=== PATIENT | female | born 1990 | race Caucasian/White ===

== ENCOUNTER → 2017-10-03 | Outpatient (CLI) | payer OTHER | END | disposition home or self-care (01) | LOC: US 16:14 | DX: Z34.92 Encounter for supervision of normal pregnancy, unspecified, second trimester (principal); Z3A.18 18 weeks gestation of pregnancy ==

== ENCOUNTER → 2017-11-02 | Outpatient (CLI) | payer OTHER | END | disposition home or self-care (01) | LOC: US 14:47 | DX: Z34.82 Encounter for supervision of other normal pregnancy, second trimester (principal); Z3A.21 21 weeks gestation of pregnancy ==

== ENCOUNTER → 2018-02-08 | Outpatient (CLI) | payer OTHER | END | disposition home or self-care (01) | LOC: US 16:40 | DX: O32.1XX0 Maternal care for breech presentation, not applicable or unspecified (principal); Z3A.35 35 weeks gestation of pregnancy ==

== ENCOUNTER → 2018-02-27 | Outpatient (CLI) | payer OTHER | END | disposition home or self-care (01) | LOC: US 10:59 | DX: Z34.93 Encounter for supervision of normal pregnancy, unspecified, third trimester (principal); Z3A.38 38 weeks gestation of pregnancy ==

== ENCOUNTER → 2020-07-27 | Outpatient (CLI) | payer OTHER | END | disposition home or self-care (01) | LOC: US 14:28 | PROVIDERS: ATTEND Nurse Practitioner Family | DX: M79.662 Pain in left lower leg (principal) ==

== ENCOUNTER 2022-03-07 18:15 | Emergency (ER) | payer OTHER ==
[~2022-03-07] VITALS: Ht 154.9 cm; Wt 86.2 kg
[2022-03-07] MEDS ORDERED: AMOX-CLAV 875-1 EACH PO (19:32)
== END 2022-03-07 20:21 | disposition home or self-care (01) ==
LOC: ED 18:15
DX: S61.452A Open bite of left hand, initial encounter (principal); S61.451A Open bite of right hand, initial encounter; W54.0XXA Bitten by dog, initial encounter; Y93.89 Activity, other specified; Y92.89 Other specified places as the place of occurrence of the external cause; Y99.8 Other external cause status

== ENCOUNTER 2022-03-09 10:05 | Inpatient (IN) | payer OTHER ==
[~2022-03-09] VITALS: Ht 154.9 cm; Wt 89.0 kg
[~2022-03-09 10:05] MED LIST: AMOX-CLAV 875-1 EACH PO
[2022-03-09 10:10] VITALS: BP 134/65
[2022-03-09 11:41] LABS: BASO % 0.4 % (0.0-1.0); EOS # 0.4 10*3/uL (0.0-0.4); EOS % 3.8 % (1.0-4.0); HEMATOCRIT 38.3 % (37.0-47.0); LYMPH # 1.6 10*3/uL (1.3-4.4); LYMPH % 15.7 % (27.0-41.0); MEAN CELL VOLUME 88.7 fl (81.0-99.0); MEAN CORPUSCULAR HGB 29.6 pg (27.0-31.0); MEAN CORPUSCULAR HGB CONC 33.4 g/dl (33.0-37.0); MEAN PLATELET VOLUME 10.4 fl (9.6-12.3); MONO # 0.7 10*3/uL (0.1-1.0); MONO % 6.6 % (3.0-9.0); NEUT # 7.4 10*3/uL (2.3-7.9); NEUT % 73.2 % (47.0-73.0); PLATELET COUNT AUTOMATED 292 10*3/uL (130-400); RED BLOOD COUNT 4.32 10*6/uL (4.10-5.10); RED CELL DISTRI WIDTH 12.5 % (0-14.5); WHITE BLOOD COUNT 10.1 10*3/uL (4.8-10.8)
[2022-03-09 12:26] LABS: ACT PARTIAL THROMBO TIME 29.7 SECONDS (20.0-32.1); INTERNATIONAL NORM RATIO 0.9 (2.0-3.5)
[2022-03-09 12:30] LABS: ALKALINE PHOSPHATASE 67 U/L (46-116); BETA-HCG, QUANT < 0.0 mIU/mL (0-10); BUN 7 mg/dl (9-23); CHLORIDE 109 mmol/L (98-107); CREATININE 0.52 mg/dL (0.55-1.02); SGPT/ALT 10 U/L (10-49); SODIUM 140 mmol/L (136-145); TOTAL PROTEIN 6.5 gm/dL (6.0-8.0)
[2022-03-09 20:15] VITALS: BP 127/84
[2022-03-09] MEDS ORDERED: VYVANSE60 MG PO (20:31)
[2022-03-09] MEDS ORDERED: PROPRANOLOL HCL20 MG PO (20:31)
[2022-03-09] MEDS ORDERED: TRINTELLIX10 MG PO (20:31)
[2022-03-10] VITALS: BP 109/64
[2022-03-10 06:39] LABS: BASO % 0.4 % (0.0-1.0); EOS # 0.5 10*3/uL (0.0-0.4); EOS % 4.9 % (1.0-4.0); HEMATOCRIT 36.1 % (37.0-47.0); LYMPH # 2.1 10*3/uL (1.3-4.4); LYMPH % 22.6 % (27.0-41.0); MEAN CELL VOLUME 90.3 fl (81.0-99.0); MEAN CORPUSCULAR HGB 29.8 pg (27.0-31.0); MONO # 0.7 10*3/uL (0.1-1.0); MONO % 7.6 % (3.0-9.0); NEUT % 64.2 % (47.0-73.0); PLATELET COUNT AUTOMATED 241 10*3/uL (130-400); RED CELL DISTRI WIDTH 12.5 % (0-14.5); WHITE BLOOD COUNT 9.4 10*3/uL (4.8-10.8)
[2022-03-10 06:52] LABS: BUN 7 mg/dl (9-23); CHLORIDE 107 mmol/L (98-107); SODIUM 137 mmol/L (136-145)
[2022-03-10 08:00] VITALS: BP 128/65
[2022-03-10 12:00] VITALS: BP 111/60
[2022-03-10 16:00] VITALS: BP 108/60
[2022-03-10 20:00] VITALS: BP 113/62
[2022-03-11] VITALS: BP 97/66
[2022-03-11 07:50] LABS: BASO # 0.1 10*3/uL (0.0-0.1); BASO % 0.6 % (0.0-1.0); EOS # 0.5 10*3/uL (0.0-0.4); EOS % 5.7 % (1.0-4.0); HEMATOCRIT 36.5 % (37.0-47.0); LYMPH # 2.6 10*3/uL (1.3-4.4); LYMPH % 31.1 % (27.0-41.0); MEAN CELL VOLUME 90.3 fl (81.0-99.0); MEAN CORPUSCULAR HGB 29.5 pg (27.0-31.0); MEAN CORPUSCULAR HGB CONC 32.6 g/dl (33.0-37.0); MEAN PLATELET VOLUME 10.2 fl (9.6-12.3); MONO # 0.6 10*3/uL (0.1-1.0); MONO % 7.8 % (3.0-9.0); NEUT # 4.5 10*3/uL (2.3-7.9); NEUT % 54.4 % (47.0-73.0); PLATELET COUNT AUTOMATED 274 10*3/uL (130-400); RED BLOOD COUNT 4.04 10*6/uL (4.10-5.10); RED CELL DISTRI WIDTH 12.4 % (0-14.5); WHITE BLOOD COUNT 8.2 10*3/uL (4.8-10.8)
[2022-03-11 08:00] VITALS: BP 120/62
[2022-03-11 08:06] LABS: BUN 10 mg/dl (9-23); CHLORIDE 106 mmol/L (98-107); CREATININE 0.67 mg/dL (0.55-1.02); POTASSIUM 3.9 mmol/L (3.4-5.1); SODIUM 138 mmol/L (136-145)
[2022-03-11 12:00] VITALS: BP 117/61
[2022-03-11 16:00] VITALS: BP 98/50
[2022-03-11 20:00] VITALS: BP 128/68
[2022-03-12] VITALS: BP 108/55
[2022-03-12 06:26] LABS: BASO % 0.4 % (0.0-1.0); EOS # 0.5 10*3/uL (0.0-0.4); EOS % 5.1 % (1.0-4.0); HEMATOCRIT 36.9 % (37.0-47.0); LYMPH # 3.1 10*3/uL (1.3-4.4); LYMPH % 31.5 % (27.0-41.0); MEAN CELL VOLUME 89.8 fl (81.0-99.0); MEAN CORPUSCULAR HGB 29.4 pg (27.0-31.0); MEAN CORPUSCULAR HGB CONC 32.8 g/dl (33.0-37.0); MEAN PLATELET VOLUME 10.4 fl (9.6-12.3); MONO # 0.7 10*3/uL (0.1-1.0); MONO % 6.9 % (3.0-9.0); NEUT # 5.5 10*3/uL (2.3-7.9); NEUT % 55.7 % (47.0-73.0); PLATELET COUNT AUTOMATED 276 10*3/uL (130-400); RED BLOOD COUNT 4.11 10*6/uL (4.10-5.10); RED CELL DISTRI WIDTH 12.4 % (0-14.5); WHITE BLOOD COUNT 9.9 10*3/uL (4.8-10.8)
[2022-03-12 07:03] LABS: BUN 15 mg/dl (9-23); CHLORIDE 107 mmol/L (98-107); CREATININE 0.69 mg/dL (0.55-1.02); POTASSIUM 3.8 mmol/L (3.4-5.1); SODIUM 139 mmol/L (136-145)
[2022-03-12 08:00] VITALS: BP 114/84
[2022-03-12] MEDS ORDERED: VIBRA-TAB100 MG PO (10:20)
[2022-03-12] MEDS ORDERED: METRONIDAZOLE500 M1 PO (10:20)
[2022-03-12] MEDS ORDERED: Bactroban Oint22 GM T (10:20)
== END 2022-03-12 11:27 | disposition home or self-care (01) | DRG 383 ==
LOC: ED 10:05 → 5E 11:09 → EDHOLD 11:09 → 5E 19:43
PROVIDERS: Emergency Medicine; Student in an Organized Health Care Education/Training Program; ADMIT Family Medicine; ATTEND Family Medicine
DX: L03.114 Cellulitis of left upper limb (principal); L03.113 Cellulitis of right upper limb; I10 Essential (primary) hypertension; G43.909 Migraine, unspecified, not intractable, without status migrainosus; E87.8 Other disorders of electrolyte and fluid balance, not elsewhere classified; D64.9 Anemia, unspecified; W54.0XXA Bitten by dog, initial encounter; Z82.49 Family history of ischemic heart disease and other diseases of the circulatory system; Z83.6 Family history of other diseases of the respiratory system; Z78.9 Other specified health status; Y93.89 Activity, other specified; Y92.89 Other specified places as the place of occurrence of the external cause; Y99.8 Other external cause status

== ENCOUNTER → 2023-05-15 | Outpatient (CLI) | payer OTHER ==
[~2023-05-15] MED LIST changes: +Bactroban Oint22 GM T; +METRONIDAZOLE500 M1 PO; +PROPRANOLOL HCL20 MG PO; +TRINTELLIX10 MG PO; +VIBRA-TAB100 MG PO; +VYVANSE60 MG PO
== END | disposition home or self-care (01) ==
LOC: US 01:22
PROVIDERS: ATTEND Internal Medicine
DX: R22.1 Localized swelling, mass and lump, neck (principal)

== ENCOUNTER → 2023-06-13 | Outpatient (CLI) | payer OTHER | END | disposition home or self-care (01) | LOC: LAB 01:48 → US 10:00 → LAB 10:00 | PROVIDERS: ATTEND Internal Medicine | DX: R53.83 Other fatigue (principal); R60.9 Edema, unspecified ==

== ENCOUNTER → 2023-10-19 | Outpatient (CLI) | payer OTHER | END | disposition home or self-care (01) | LOC: LAB 01:36 | PROVIDERS: ATTEND Internal Medicine Endocrinology, Diabetes & Metabolism | DX: E24.9 Cushing's syndrome, unspecified (principal) ==

== ENCOUNTER → 2023-10-30 | Outpatient (CLI) | payer OTHER | END | disposition home or self-care (01) | LOC: LAB 09:52 | PROVIDERS: ATTEND Internal Medicine Endocrinology, Diabetes & Metabolism | DX: E24.9 Cushing's syndrome, unspecified (principal) ==